=== PATIENT | male | born 1980 | race Caucasian/White ===

== ENCOUNTER 2024-03-09 15:18 | Emergency (ER) | payer BC, SELFPAY ==
[2024-03-09] VITALS (7 sets, daily range): BP systolic 138–164; BP diastolic 100–113; PULSE 63–84; RESP 16–22; TEMP 36.2–36.7; O2SAT 96–100; BMI 33.3
--- NOTE | 2024-03-09 15:23 | EKG12_ITS ---
Test Reason : CP Blood Pressure : / mmHG Vent. Rate : 078 BPM Atrial Rate : 078 BPM P-R Int : 166 ms QRS Dur : 090 ms QT Int : 394 ms P-R-T Axes : 027 -16 003 degrees QTc Int : 449 ms Normal sinus rhythm Minimal voltage criteria for LVH, may be normal variant ( R in aVL ) Borderline ECG Confirmed by ZOYA PANTOJA, HEMA ([id number]), development editor OMAR GUO ([id number]) on 03/12/2024 11:20:28 AM Referred By: Confirmed By:HEMA KENNY MD
--- NOTE | 2024-03-09 15:24 | NURSING ---
NO OLD EKGS
--- NOTE | 2024-03-09 15:39 | RAD_ITS ---
EXAM: XR CHEST, 1 VIEW CLINICAL INDICATION: chest pain TECHNIQUE: Frontal view of the chest. COMPARISON: No relevant prior studies available. FINDINGS: LUNGS AND PLEURAL SPACES: Shallow inspiration. No airspace opacification of the lungs. No pleural effusion or pneumothorax. HEART: Normal heart size. MEDIASTINUM: No mediastinal or hilar mass. BONES/JOINTS: No acute abnormality. RAD/Chest 1 View (Portable) IMPRESSION: No acute cardiopulmonary abnormality. Electronically Signed: Allan Carolina MD at 16:00 EDT ,
[2024-03-09 16:04] LABS: Absolute Lymphocyte Count 2.34 X10^3/uL (0.83-4.51); Absolute Neutrophil Count 5.8 X10^3/uL (2.0-7.7); Basophil# 0.05 X10^3/uL; Basophil% 0.5 % (0-1); Eosinophil# 0.16 X10^3/uL; Eosinophils% 1.7 % (0-5); Hematocrit 41.1 % (40-54); Hemoglobin 13.8 g/dL (13.0-16.5); Lymphocyte # 2.34 X10^3/ul (0.83-4.51); Lymphocyte % 25.5 % (19-41); Mean Corp Hgb Conc 33.6 g/dL (32-36); Mean Corpuscular Hgb 29.1 pg (27.0-32.0); Mean Corpuscular Volume 86.7 fL (80-94); Mean Platelet Vol. 11.2 fl (6.2-12.0); Monocyte% 8.7 % (0-10); NRBC Flagged by Analyzer 0 % (0-5); Neutrophil # 5.79 X10^3/uL (2.7-7.7); Neutrophil % 63.3 % (47-70); Platelet Count 203 K/mm3 (150-450); RBC Distribution Width CV 12.2 % (11.6-14.6); RBC Distribution Width SD 38.7 fl (35.1-43.9); Red Blood Count 4.74 M/mm3 (4.6-6.2); White Blood Count 9.2 K/mm3 (4.4-11.0)
[2024-03-09 16:23] LABS: Anion Gap 6 (5-15); BUN 18 mg/dL (7-18); BUN/Creat Ratio 15.3 RATIO (10-20); Calcium,Total 8.6 mg/dL (8.5-10.1); Chloride 109 mmol/L (98-107); Creatinine, Serum 1.18 mg/dL (0.70-1.30); EST Glomerular Filtration Rate 71 mL/min (>60); Est Glom Filt Rate - Afr Amer 86 mL/min (>60); Estimated Creatinine Clearance 96.07 ml/min; Glucose 115 mg/dL (74-106); Potassium 3.4 mmol/L (3.5-5.1); Sodium Level 143 mmol/L (136-145); Troponin-I HS (w/2H Reflex) 8 pg/mL (3.0-78.0)
--- NOTE | 2024-03-09 17:08 | ED.VIS.CHEST ---
HPI History of Present Illness Chief Complaint: Chest Pain Informant: patient Narrative Narrative: Patient is a 43-year-old male with history of hypertension (not on any medication) presenting with chest pain, nausea, lightheadedness, dry heaves, generalized malaise and congestion. He states his girlfriend tested for COVID earlier this week and needing to might have it as well. Has had symptoms for the past 2 to 3 days. He has been missing work because of it. He states on the left side of his chest feels like he got punched and it hurts when he takes a deep breath. He has been having fevers subjectively. Took Tylenol yesterday which did help a little bit. Has not had any medications today. Notes his nausea is doing a lot better today. Initially went to urgent care and was sent to the ER for further evaluation. Did take a home COVID test yesterday which was negative. [facility] Medical History (Updated 03/09/24 @ 19:[address] Mónica Hopper, DO) HTN (hypertension) Allergy/AdvReac Type Severity Reaction Status Date / Time No Known Allergies Allergy Verified 03/09/24 15:19 Family History (Updated 03/09/24 @ 16:23 by Kristina Rowley) Father CVA (cerebral vascular accident) Heart disease Social History (Updated 03/09/24 @ 16:23 by Kristina Rowley) household members: significant other housing: house Smoking Status: Never smoker ROS ROS ED Constitutional Constitutional ED: Reports chills, fever(s) and sweats Eyes Eyes: Denies change in vision ENT ENT ED: Reports other Details: Nasal congestion ; Denies sore throat Cardiovascular Cardiovascular: Reports chest pain Respiratory/Chest Respiratory/Chest: Reports cough and dyspnea Gastrointestinal Gastrointestinal: Reports nausea; Denies abdominal pain or vomiting Genitourinary Genitourinary ED: Denies dysuria or hematuria Musculoskeletal Musculoskeletal: Reports myalgias Integumentary Denies rash Neurologic Neurologic: Reports headache(s) EXAM Physical Exam Const Vital Signs: 03/09/24 15:19 03/09/24 15:23 03/09/24 16:18 Temperature 97.2 F L Temperature Source Temporal Pulse Rate 84 81 Respiratory Rate 22 H 20 H Respiratory Effort Blood Pressure 157/112 H 153/101 H Blood Pressure Mean 127 118 Pulse Ox 96 96 98 Oxygen Delivery Method Room Air Room Air 03/09/24 16:22 03/09/24 17:00 03/09/24 18:00 Temperature Temperature Source Pulse Rate 71 63 Respiratory Rate 22 H 16 Respiratory Effort Short of Breath Blood Pressure 164/113 H 138/100 H Blood Pressure Mean 130 112 Pulse Ox 98 98 Oxygen Delivery Method Room Air 03/09/24 19:01 03/09/24 19:47 Temperature 98.0 F Temperature Source Pulse Rate 70 67 Respiratory Rate 20 H 18 Respiratory Effort Blood Pressure 148/107 H 147/101 H Blood Pressure Mean 120 116 Pulse Ox 98 100 Oxygen Delivery Method Room Air Positive well nourished and well developed General Appearance ED: well developed and NAD HEENT Reports moist mucous membranes HEENT Narrative: Air-fluid level noted behind bilateral tympanic membranes, no associated erythema. Nasal congestion present. Normal oropharynx. Eyes PERRL and EOMs intact bilaterally Neck no lymphadenopathy and supple Neck Narrative: No meningeal signs, normal range of motion of the neck Chest Wall inspection of chest normal Resp normal respiratory effort and clear to auscultation bilaterally Cardio regular rate, regular rhythm and no murmurs GI normal to inspection, nondistended, normoactive bowel sounds, soft to palpation and non-tender Extremity normal to inspection Neuro oriented x3 Sensorium / Orientation: awake and alert Motor Exam: Negative for general weakness Psych mental status grossly normal Skin no rashes or lesions noted and no wounds Heart Score History: Slightly/Non-Suspicious ECG: Normal Age: </= 45 years Risk Factors: 1 or 2 Risk Factors Troponin: </= Normal Limit Score: 1 MDM MDM MDM Narrative Medical decision making narrative: Patient is evaluated for chest pain, chest tightness and flulike symptoms. He has exposure to COVID-19 by his girlfriend. Patient peers nontoxic in no acute distress. Blood pressure is mildly elevated however patient does have a history of what sounds like some mild hypertension but is not currently on medication for it. He is following with his primary care doctor for this. Protocol order started. I suspect he has a viral syndrome. He is PE RC negative I do not think requires workup for pulmonary emboli. EKG does show some findings consistent with LVH which would be consistent with some longstanding hypertension. High since he troponin is normal x 2 and a low suspicion for ACS. CBC and BMP largely normal. Chest x-ray does not show any acute infiltrate or pneumonia. This is reviewed by myself as well as radiology. Patient is given IV fluids and Toradol in the ER. Repeat evaluation he states he is feeling a little better. Patient be discharged home. He is asking for a work note. Is given a work note for today and through the weekend. Counseled that we do not backdate work notes. Patient is given return precautions to the ER. Counseled that even though his COVID test is negative I suspect he still has a viral syndrome of some sort and given his exposure to COVID probably has COVID-19. Patient is given return precautions. Encouraged follow-up with primary care doctor. Discharged home in stable condition. Lab Data Attestation: I reviewed the patient's lab results. Labs: Laboratory Results - last 24 hr 03/09/24 03/09/24 15:47 18:07 WBC 9.2 RBC 4.74 Hgb 13.8 Hct 41.1 MCV 86.7 MCH 29.1 MCHC 33.6 RDW Std Deviation 38.7 RDW Coeff of Elian 12.2 Plt Count 203 MPV 11.2 Immature Gran % (Auto) 0.300 Neut % (Auto) 63.3 Lymph % (Auto) 25.5 [place] % (Auto) 8.7 Eos % (Auto) 1.7 Baso % (Auto) 0.5 Absolute Neuts (auto) 5.8 Absolute Lymphs (auto) 2.34 Nucleated RBC % 0 Sodium 143 Potassium 3.4 L Chloride 109 H Carbon Dioxide 28.0 Anion Gap 6 BUN 18 Creatinine 1.18 Estim Creat Clear Calc 96.07 Est GFR (MDRD) Af Amer 86 Est GFR (MDRD) Non-Af 71 BUN/Creatinine Ratio 15.3 Glucose 115 H Calcium 8.6 Troponin I High Sens 8 8 Radiography Chest X-Ray - ED: 1 View, Read by ED Physician, Read by Radiologist and No Acute Disease Diagnostic Testing: Clinical Impression(s) from Imaging Studies Chest X-Ray 03/09/24 15:39 IMPRESSION: No acute cardiopulmonary abnormality. Electronically Signed: Allan Carolina MD at 16:00 EDT , Rhythm Strip Rhythm Strip: Sinus Rhythm Rate: 78 Ectopy: None EKG Initial EKG: Attestation: I personally reviewed and interpreted this EKG as follows: Interpretation: Sinus Rhythm Comments: Normal sinus rhythm at a rate of 78 beats per minutes Normal axis Minimal voltage criteria for LVH Normal ST segments Discharge Plan Triage Chief Complaint: Chest Pain ED Provider: Mónica Hopper Dx/Rx/DC Orders Clinical Impression: Acute viral syndrome, Exposure to COVID-19 virus, Chest pain Instructions: ED Chest Pain, Noncardiac, ED URI, Viral, No Abx (Adult) Stand Alone Forms: Work / School Excuse Primary Care Provider: Gaston Knight Referrals: Gaston Knight MD [Primary Care Provider] - Activity Restrictions/Additional Instructions: Please take ibuprofen or Tylenol at home for pain. Drink plenty fluids. You may take [id number] cough and cold medicine as well. I suspect you do have a viral syndrome, likely COVID given your exposure. Your test was negative today however. Print Language: Icelandic Disposition Disposition: Home, Self Care Discharge Date/Time: 03/09/24 19:48
[2024-03-09] MEDS: Ketorolac 15 MG/ML Vial IV (17:18)
[2024-03-09] MEDS: 0.9% Normal Saline (1000mL) 1,000 ML 999 ML IV (17:18)
[2024-03-09 18:01] LABS: Reflex Troponin-HS? (from REC) Y
[2024-03-09 18:44] LABS: Troponin-I HS 8 pg/mL (3.0-78.0)
== END 2024-03-09 19:48 | disposition home or self-care (01) ==
PROVIDERS: Emergency Provider Emergency Medicine; PCP Family Medicine; Visit Provider Emergency Medicine
DX: B34.9 Viral infection, unspecified (principal); R07.9 Chest pain, unspecified; Z20.822 Contact with and (suspected) exposure to COVID-19; R51.9 Headache, unspecified; R11.0 Nausea; R05.9 Cough, unspecified; R06.00 Dyspnea, unspecified
CPT/HCPCS: 71045; 80048; 84484; 85025; 87635; 93005; 96361; 96374; 99284; A4216

== ENCOUNTER → 2024-09-28 | Outpatient (CLI) | payer SELFPAY, BC ==
--- NOTE | 2024-09-28 14:47 | CT_ITS ---
PROCEDURE: Calcium scoring cardiac CT. REASON FOR EXAM: Coronary artery disease. TECHNIQUE: Contiguous unenhanced axial CT images were obtained through the thorax/mediastinum. IV contrast was not administered. COMPARISON: Chest radiograph 03/09/2024. No prior chest CT. FINDINGS: Included upper abdominal structures show no specific abnormality. Included ribs and other osseous structures are grossly unremarkable. Evaluation of hilar/vascular/mediastinal structures is limited due to lack of intravenous contrast. Central airway is clear. No focal airspace consolidation, pleural effusion, or dominant pulmonary parenchymal nodule in the included lungs. There is a 4 mm nodule along the plane of the right minor fissure image 27 of the large [id number] lung windows. No mediastinal mass or adenopathy. 2 mm tiny noncalcified nodule anterolateral right lower lobe image 35. The Agatston calcium scoring score is 0. CT/Limited Chest CT Cardiac Only IMPRESSION: Agatston coronary artery calcium score of 0. This places the patient in the 25 th percentile, meaning that 74% of the population has a higher calcium score. 4 mm nodule along the plane of the right minor fissure. No dedicated imaging f ollow-up recommended. One or more dose reduction techniques were used (e.g., Automated exposure contr ol, adjustment of the mA and/or kV according to patient size, use of iterative reconstruction technique). Reading [facility]
--- NOTE | 2024-09-28 16:24 | CA.SCORE ---
Calcium Scoring Date of Study:: 09/28/24 Indications Indications: Family history Coronary Calcium Scoring: High-resolution Computed Tomographic imaging of the chest was performed on [09/28/2024], with particular attention paid to the coronary arteries. Images from the examination were analyzed for the presence and extent of coronary artery calcification , using coronary calcium quantification software. The patient tolerated the procedure well and there were no complications. The results of the coronary calcification analysis are provided below. Findings Coronary Artery Left Main (LM): 0 Left Anterior Descending (LAD): 0 Left Circumflex (LCX): 0 Right Coronary Artery (RCA): 0 Total Agatston Score: 0 Percentile Rankinth percentile Calcium Scoring Interpretation: Different methods to categorize the overall amount of coronary plaque. Overall amount CAC SIS Visual of coronary plaque P1 Mild -100 <2 1-2 vessels with mild amount of plaque P2 Moderate 101-300 3-4 1-2 vessels with moderate amount, 3 vessels with mild amount of plaque P3 Severe 301-999 5-7 3 vessels with moderate amount, 1 vessel with severe amount of plaque P4 Extensive >1000 >8 2-3 vessels with severe amount of plaque Conclusion: No atherosclerotic plaquing noted.
== END | disposition home or self-care (01) ==
LOC: CT 14:46
PROVIDERS: PCP Family Medicine; Referring Provider Family Medicine; Visit Provider Family Medicine
DX: Z13.6 Encounter for screening for cardiovascular disorders (principal); E78.2 Mixed hyperlipidemia
CPT/HCPCS: 75571; 76380